=== PATIENT | male | born 1955 | race Caucasian/White ===

== ENCOUNTER 2018-01-18 15:40 | Observation (INO) | payer MEDICAID, SELFPAY ==
[2018-01-18] VITALS (79 sets, daily range): BP systolic 116–141; BP diastolic 50–84; PULSE 42–61; RESP 7–22; TEMP 36.5–37.6; O2SAT 90–100
--- NOTE | 2018-01-18 16:02 | W.ED.GENAD ---
Discharge Plan Discharge Details Chief Complaint: Dizzy/Sync ED Provider: Aj Denson Home Meds and New Rx's Prescriptions: No Action simvastatin 20 mg Tablet 20 mg PO QPM RF: 0 hydrochlorothiazide 25 mg Tablet 25 mg PO DAILY RF: 0 lisinopril 10 mg Tablet See Label Instructions .ROUTE .COMPLEX RF: 0 Medical Decision Making This is a pleasant 62-year-old male who is a very poor historian, who presents today for evaluation of near syncope and dizziness that occurred when he turned his head suddenly to the side while driving. He has associated tinnitus. His symptoms are made worse when he stands up or moves around. Physical exam demonstrates a diaphoretic appearing male, with no associated chest pain. Notably dizzy and lightheaded. EKG shows evidence of bradycardia, but no other significant abnormalities. He states that in the past his heart rate has been slow. We will rehydrate the patient, give meclizine and Zofran as I am concerned for potential peripheral vertigo as a cause of his symptoms however with his associated headache I do think it is reasonable to get a CT scan of the head and neck to evaluate for any acute bleed or pathology although I feel this less likely. With his normal neurologic exam I am otherwise reassured. 5:[address] angios the head and neck shows no acute process. CT of the head demonstrates generalized prominence of the pituitary gland with slight elevation of the sella diaphragm. Radiology recommends further MRI evaluation. While here and resting the patient demonstrated notable episodes of sinus bradycardia. Initial EKG shows evidence of sinus bradycardia however here in the monitor he would dip down into the high 30s. We would go in and wake the patient up and he would come back to the high 40s to mid 50s. On reassessment the patient's dizziness has notably improved. He continues to demonstrate no acute neurologic process or definite neurologic deficit. The patient's laboratory workup is returned and demonstrates no significant acute laboratory abnormalities. Creatinine is slightly elevated at 1.36, however troponin, electrolytes are otherwise normal. I did contact the system development manager Dr. Power and discussed the case with him. He feels that with a sinus rhythm the patient's symptoms are unlikely to require pacing. He recommends monitoring, with an outpatient echocardiogram and Holter monitor. He feels that the patient's transient bradycardia is likely to resolve during the night most likely being initially secondary to his vasovagal episodes with his associated vertigo. Clinically the patient does show signs and symptoms consistent with peripheral vertigo, which is response and improvement with meclizine and Zofran, his sudden onset of symptoms with turning his head to the left, and his associated tinnitus. We did get the patient up and ambulate him, and he shows no sign of an ataxic gait, however he still does feel slightly dizzy. He is notably improved from his prior clinical picture though. We will contact the hospitalist for admission/observation. 6:20 PM I did contact the hospitalist and discussed the case with Dr. Sandy, he agrees with the assessment and plan. The patient will be admitted to the floor for telemetry. I have extensively reviewed the treatment plan with the patient. I have addressed all patient concerns at this time. I have also discussed the plan with the admitting physician and they agree with the current assessment and plan and have agreed to assume responsibility for the patient. All parties demonstrate verbal understanding and agreement with our assessment and plan at this time. EKG 15: 49 Rate 55, [place] 198, QTc 444, QRS 102, sinus bradycardia no ST elevations or depressions, T wave inversion noted in V1. No Q waves. No other abnormalities IMPRESSION: 1. Generalized prominence of the pituitary gland, slightly elevating the sellar diaphragm diaphragm. Recommend further evaluation with MRI brain with and without contrast using pituitary protocol. 2. No other acute intracranial pathology. IMPRESSION: No occlusion or hemodynamically significant stenosis in the arteries of the neck. IMPRESSION: No intracranial arterial occlusion or hemodynamically significant stenosis. HPI General Date/Time Provider Initiated Documentation: 01/18/18 15:46. HPI Narrative: This is a 62-year-old male with a past medical history of diabetes, cholesterol, previous episodes of syncope in the past, and vertigo who presents today for evaluation of dizziness and syncope. The patient states that he was driving his car, when he turned his head to the left suddenly to look in his mirror at which point he became very dizzy and felt like he needed to pass out. Pulled over, and felt extremely lightheaded. When he came to he had a mild headache, and notable severe dizziness with room spinning sensation. He also had associated ringing in his ears. Symptoms were made worse with movement of his head or body. Improved by nothing. He did have associated diaphoresis during this episode. He denies any chest pain or shortness of breath. He denies any numbness, tingling, weakness double vision. He does admit to notable nausea but no vomiting or diarrhea. He does have a history of vertigo in the past which she states that this feels very similar to. Patient denies any other complaints at this time. He does admit to a past surgical history on his left eye for removal of a small mass, which has led to an equal pupil. He denies any other new surgery or problems. He denies any cardiac history or history of stroke. The patient denies any headache red flags of worst headache of life, thunderclap headache, neck pain, fever, chills, concerning family history of polycystic kidney disease, Marfan syndrome, Shelly-Danlos syndrome, abdominal aortic aneurysm, aortic dissection, or intracranial aneurysm. He has no other complaints at this time. Related Data Home Medications Medication Instructions Recorded Confirmed hydrochlorothiazide 25 mg PO DAILY 01/18/18 01/18/18 lisinopril See Label Instructions .ROUTE 01/18/18 01/18/18 .COMPLEX simvastatin 20 mg PO QPM 01/18/18 01/18/18 Allergies Allergy/AdvReac Type Severity Reaction Status Date / Time No Known Allergies Allergy Unverified 01/18/18 16:10 General Stated Complaint: Dizzy/Sync LESLEE: 2 Review of Systems Review of Systems All systems reviewed & are unremarkable except as noted in HPI and below PFSH Social History Smoking/Tobacco Use Status: Former Tobacco Use Social History Smoking/Tobacco Use Status: Former Tobacco Use Exam Narrative Exam Narrative: 1.Const: Well-nourished, Well-developed, appearing stated age, diaphoretic 2.Eyes: PERRL, no conjunctival injection, and symmetrical lids. 3.ENT: Atraumatic external nose and ears. Moist MM. Neck: Symmetric, trachea midline, No thyromegaly. Old surgical scar in his left eye, with some associated anisocoria, pupils otherwise reactive. 4.CVS: +S1/S2, No murmurs or gallops. Peripheral pulses 2+ and equal in all extremities. Brisk capillary refill in all extremities. 5.RESP: Unlabored respiratory effort. Clear to auscultation bilaterally. No wheezes rales or rhonchi 6.GI: Soft, Nontender/Nondistended, No hepatosplenomegaly. No guarding or rebound. 7.MSK: Normocephalic/Atraumatic, Extremities w/o deformity or ttp No cyanosis or clubbing, Normal movement of all extremities 8.Skin: Warm, Dry. No rashes or lesions. 9.Neuro: site worker II-XII grossly intact. Sensation grossly intact, no focal neurologic deficits. All 6 cardinal planes of vision are fully intact. No evidence of rotatory or vertical nystagmus. The patient demonstrated a normal vhftuw-wrca-bgwdhf, good dexterity. There was no evidence of dysdiadochokinesia. Patient was able to ambulate without difficulty. There was no wide-based gait. Romberg, and crla-bw-jhdo are both normal on testing. Sensation was intact bilaterally as well as muscle strength bilaterally for all extremities. Patient was able to verbalize butter cup with no slurring, or miss pronunciation. Cerebellar function testing is normal. The patient demonstrates a normal hints exam with no findings concerning for a central event. No vertical nystagmus. The head impulse test is negative for any significant central abnormality. Normal test of skew. No suggestion of a central cerebellar event. CN 2-12 tested and intact, patient is able to hold bilateral arms up for 5 seconds and there is no pronator drift, patient also holds legs up for 10 seconds bilaterally without any drop, sensation intact to light touch in hands and feet bilaterally. Cerebellar exam normal as tested by [id number], [id number], rapid alternating movements, fine finger movements. Visual dumont intact peripherally. Normal speech pattern and verbal understanding. 10.Psych: (AAO) x3. Appropriate mood and affect Course Vital Signs Pulse 57 L 01/18/18 15:43 Respiratory Rate 16 01/18/18 15:43 Blood Pressure 135/50 L 01/18/18 15:43 Pulse Oximetry 94 L 01/18/18 15:43 Pulse 57 L 01/18/18 15:43 Respiratory Rate 16 01/18/18 15:43 Blood Pressure 135/50 L 01/18/18 15:43 Blood Pressure Position Sitting 01/18/18 15:43 Pulse Oximetry 94 L 01/18/18 15:43
--- NOTE | 2018-01-18 16:08 | ED.GENADUL_ITS ---
Discharge Plan Discharge Details Chief Complaint: Dizzy/Sync ED Provider: Aj Denson Home Meds and New Rx's Prescriptions: No Action simvastatin 20 mg Tablet 20 mg PO QPM RF: 0 hydrochlorothiazide 25 mg Tablet 25 mg PO DAILY RF: 0 lisinopril 10 mg Tablet See Label Instructions .ROUTE .COMPLEX RF: 0 Medical Decision Making This is a pleasant 62-year-old male who is a very poor historian, who presents today for evaluation of near syncope and dizziness that occurred when he turned his head suddenly to the side while driving. He has associated tinnitus. His symptoms are made worse when he stands up or moves around. Physical exam demonstrates a diaphoretic appearing male, with no associated chest pain. Notably dizzy and lightheaded. EKG shows evidence of bradycardia, but no other significant abnormalities. He states that in the past his heart rate has been slow. We will rehydrate the patient, give meclizine and Zofran as I am concerned for potential peripheral vertigo as a cause of his symptoms however with his associated headache I do think it is reasonable to get a CT scan of the head and neck to evaluate for any acute bleed or pathology although I feel this less likely. With his normal neurologic exam I am otherwise reassured. 5:[address] angios the head and neck shows no acute process. CT of the head demonstrates generalized prominence of the pituitary gland with slight elevation of the sella diaphragm. Radiology recommends further MRI evaluation. While here and resting the patient demonstrated notable episodes of sinus bradycardia. Initial EKG shows evidence of sinus bradycardia however here in the monitor he would dip down into the high 30s. We would go in and wake the patient up and he would come back to the high 40s to mid 50s. On reassessment the patient's dizziness has notably improved. He continues to demonstrate no acute neurologic process or definite neurologic deficit. The patient's laboratory workup is returned and demonstrates no significant acute laboratory abnormalities. Creatinine is slightly elevated at 1.36, however troponin, electrolytes are otherwise normal. I did contact the office technician Dr. Power and discussed the case with him. He feels that with a sinus rhythm the patient' s symptoms are unlikely to require pacing. He recommends monitoring, with an outpatient echocardiogram and Holter monitor. He feels that the patient's transient bradycardia is likely to resolve during the night most likely being initially secondary to his vasovagal episodes with his associated vertigo. Clinically the patient does show signs and symptoms consistent with peripheral vertigo, which is response and improvement with meclizine and Zofran, his sudden onset of symptoms with turning his head to the left, and his associated tinnitus. We did get the patient up and ambulate him, and he shows no sign of an ataxic gait, however he still does feel slightly dizzy. He is notably improved from his prior clinical picture though. We will contact the hospitalist for admission/observation. 6:20 PM I did contact the hospitalist and discussed the case with Dr. Sandy, he agrees with the assessment and plan. The patient will be admitted to the floor for telemetry. I have extensively reviewed the treatment plan with the patient. I have addressed all patient concerns at this time. I have also discussed the plan with the admitting physician and they agree with the current assessment and plan and have agreed to assume responsibility for the patient. All parties demonstrate verbal understanding and agreement with our assessment and plan at this time. EKG 15: 49 Rate 55, [place] 198, QTc 444, QRS 102, sinus bradycardia no ST elevations or depressions, T wave inversion noted in V1. No Q waves. No other abnormalities IMPRESSION: 1. Generalized prominence of the pituitary gland, slightly elevating the sellar diaphragm diaphragm. Recommend further evaluation with MRI brain with and without contrast using pituitary protocol. 2. No other acute intracranial pathology. IMPRESSION: No occlusion or hemodynamically significant stenosis in the arteries of the neck. IMPRESSION: No intracranial arterial occlusion or hemodynamically significant stenosis. HPI General Date/Time Provider Initiated Documentation: 01/18/18 15:46 . HPI Narrative: This is a 62-year-old male with a past medical history of diabetes, cholesterol, previous episodes of syncope in the past, and vertigo who presents today for evaluation of dizziness and syncope. The patient states that he was driving his car, when he turned his head to the left suddenly to look in his mirror at which point he became very dizzy and felt like he needed to pass out. Pulled over, and felt extremely lightheaded. When he came to he had a mild headache, and notable severe dizziness with room spinning sensation. He also had associated ringing in his ears. Symptoms were made worse with movement of his head or body. Improved by nothing. He did have associated diaphoresis during this episode. He denies any chest pain or shortness of breath. He denies any numbness, tingling, weakness double vision. He does admit to notable nausea but no vomiting or diarrhea. He does have a history of vertigo in the past which she states that this feels very similar to. Patient denies any other complaints at this time. He does admit to a past surgical history on his left eye for removal of a small mass, which has led to an equal pupil. He denies any other new surgery or problems. He denies any cardiac history or history of stroke. The patient denies any headache red flags of worst headache of life, thunderclap headache, neck pain, fever, chills, concerning family history of polycystic kidney disease, Marfan syndrome, Shelly- Danlos syndrome, abdominal aortic aneurysm, aortic dissection, or intracranial aneurysm. He has no other complaints at this time. Related Data Home Medications Medication Instructions Recorded Confirmed hydrochlorothiazide 25 mg PO DAILY 01/18/18 01/18/18 lisinopril See Label Instructions .ROUTE 01/18/18 01/18/18 .COMPLEX simvastatin 20 mg PO QPM 01/18/18 01/18/18 Allergies Allergy/AdvReac Type Severity Reaction Status Date / Time No Known Allergies Allergy Unverified 01/18/18 16:10 General Stated Complaint: Dizzy/Sync LESLEE: 2 Review of Systems Review of Systems All systems reviewed & are unremarkable except as noted in HPI and below PFSH Social History Smoking/Tobacco Use Status: Former Tobacco Use Social History Smoking/Tobacco Use Status: Former Tobacco Use Exam Narrative Exam Narrative: 1.Const: Well-nourished, Well-developed, appearing stated age, diaphoretic 2.Eyes: PERRL, no conjunctival injection, and symmetrical lids. 3.ENT: Atraumatic external nose and ears. Moist MM. Neck: Symmetric, trachea midline, No thyromegaly. Old surgical scar in his left eye, with some associated anisocoria, pupils otherwise reactive. 4.CVS: +S1/S2, No murmurs or gallops. Peripheral pulses 2+ and equal in all extremities. Brisk capillary refill in all extremities. 5.RESP: Unlabored respiratory effort. Clear to auscultation bilaterally. No wheezes rales or rhonchi 6.GI: Soft, Nontender/Nondistended, No hepatosplenomegaly. No guarding or rebound. 7.MSK: Normocephalic/Atraumatic, Extremities w/o deformity or ttp No cyanosis or clubbing, Normal movement of all extremities 8.Skin: Warm, Dry. No rashes or lesions. 9.Neuro: product specialist II-XII grossly intact. Sensation grossly intact, no focal neurologic deficits. All 6 cardinal planes of vision are fully intact. No evidence of rotatory or vertical nystagmus. The patient demonstrated a normal odepgj-dyub-uygkgl, good dexterity. There was no evidence of dysdiadochokinesia. Patient was able to ambulate without difficulty. There was no wide-based gait. Romberg, and pnuf-qn-dush are both normal on testing. Sensation was intact bilaterally as well as muscle strength bilaterally for all extremities. Patient was able to verbalize butter cup with no slurring, or miss pronunciation. Cerebellar function testing is normal. The patient demonstrates a normal hints exam with no findings concerning for a central event. No vertical nystagmus. The head impulse test is negative for any significant central abnormality. Normal test of skew. No suggestion of a central cerebellar event. CN 2-12 tested and intact, patient is able to hold bilateral arms up for 5 seconds and there is no pronator drift, patient also holds legs up for 10 seconds bilaterally without any drop, sensation intact to light touch in hands and feet bilaterally. Cerebellar exam normal as tested by [id number], feut-ozpp-npsz, rapid alternating movements, fine finger movements. Visual dumont intact peripherally. Normal speech pattern and verbal understanding. 10.Psych: (AAO) x3. Appropriate mood and affect Course Vital Signs Pulse 57 L 01/18/18 15:43 Respiratory Rate 16 01/18/18 15:43 Blood Pressure 135/50 L 01/18/18 15:43 Pulse Oximetry 94 L 01/18/18 15:43 Pulse 57 L 01/18/18 15:43 Respiratory Rate 16 01/18/18 15:43 Blood Pressure 135/50 L 01/18/18 15:43 Blood Pressure Position Sitting 01/18/18 15:43 Pulse Oximetry 94 L 01/18/18 15:43
[2018-01-18 16:11] LABS: Abs Immature Grans 0.06 k/cumm (0.0-0.09); Absolute Basophil Count 0.05 k/cumm (0.0-0.2); Absolute Lymphocyte Count 3.77 k/cumm (1.2-3.4); Absolute Monocyte Count 1.06 k/cumm (0.11-0.7); Absolute Neutrophil Count 5.28 k/cumm (1.2-6.7); Basophils % 0.5; HCT 45.2 % (40.0-50.0); HGB 15.6 g/dL (13.5-17.5); Immature Grans % 0.6; Lymphocytes % 36.5; Mean Corp. HGB Concentration 34.5 g/dL (32.0-36.0); Mean Corpuscular Hemoglobin 29.6 pg (27.0-33.0); Mean Corpuscular Volume 85.8 fL (80-95); Mean Platelet Volume 10.3 fL (8.0-11.0); Monocytes % 10.3; Neutrophils % 51.1; Platelet Count 309 x1000/uL (130-400); RBC 5.27 m/cumm (4.50-6.00); RBC Distribution Width 13.4 % (11.8-14.1); White Blood Cell Count 10.32 k/cumm (4.4-10.8)
[2018-01-18] MEDS: Meclizine 25 MG TAB PO (16:11)
[2018-01-18] MEDS: Ondansetron O.D.T. 4 MG TABEF PO (16:11)
[2018-01-18] MEDS: Ondansetron 4 MG/2 ML VIAL (16:11)
[2018-01-18] MEDS: Normal Saline 1,000 ML 1000 ML IV (16:11)
[2018-01-18 16:18] LABS: Magnesium 1.9 mg/dL (1.8-2.4)
[2018-01-18 16:28] LABS: ALT 42 U/L (12-78); AST 26 U/L (15-37); Albumin 4.2 g/dL (3.4-5.0); Alkaline Phosphatase 51 U/L (46-116); Anion Gap 11.8 mmol/L (3-11); BUN 19 mg/dL (7-18); Bilirubin, Total 0.5 mg/dL (0.2-1.0); CO2 25.2 mmol/L (21.0-32.0); CREATININE 1.36 mg/dL (0.70-1.30); Calcium 9.3 mg/dL (8.5-10.1); Chloride 101 mmol/L (98-107); Glucose 143 mg/dL (70-100); Potassium 3.4 mmol/L (3.5-5.1); Sodium 138 mmol/L (136-145); Total Protein 7.6 g/dL (6.4-8.2)
[2018-01-18 16:37] LABS: Troponin I < 0.02 ng/mL (0.00-0.06)
--- NOTE | 2018-01-18 17:05 | DI.CT_ITS ---
SYMPTOMS/DIAGNOSIS: SUDDEN ONSET DIZZINESS, VOMITING, HEADACHE CT SCAN OF THE BRAIN: Noncontrast examination. No priors for comparison. The ventricles and sulci are consistent with the patient's age. There is a normal kirkland-white matter differentiation. The ventricles are intact. The basilar cisterns are patent. No intracranial hemorrhage, infarct, midline shift or mass effect is identified. There is prominence of the pituitary gland extending superiorly with some loss of the suprasellar space. There is a mucus retention cyst or polyp in the right maxillary sinus. The remaining visualized paranasal sinuses are clear. The mastoid air cells are well pneumatized. The calvarium is intact. IMPRESSION: 1. No acute intracranial process. 2. Prominence of the pituitary gland. Further evaluation with an MRI of the brain without and with contrast using the pituitary protocol is recommended. CTA OF THE HEAD AND NECK: CT angiography was performed with multi slice acquisition and multi planar and 3D reconstruction. Routine examination was performed. CTA OF THE HEAD: The distal internal carotid arteries show no occlusion or aneurysm. No significant stenosis is seen. The anterior cerebral arteries show no evidence of occlusion or aneurysm. No significant stenosis is present. The middle cerebral arteries show no evidence of occlusion or aneurysm. No significant stenosis is seen. The posterior cerebral arteries show no evidence of occlusion or aneurysm. No significant stenosis is seen. Note is made of origin of the left posterior cerebral artery. The distal vertebral arteries and basilar artery are unremarkable without evidence of aneurysm, occlusion or significant stenosis. IMPRESSION: No evidence of hemodynamically significant stenosis or occlusion. CTA OF THE NECK: The common carotid arteries show mild atherosclerosis, but no hemodynamically significant stenosis is seen. No evidence of dissection or occlusion is present. The internal carotid arteries show mild atherosclerosis proximally, but no significant stenosis is seen. No occlusion or dissection is present. The external carotid arteries are unremarkable without evidence of occlusion or significant stenosis. The vertebral arteries are unremarkable. No evidence of occlusion or dissection. No significant stenosis is present. The basilar artery is unremarkable without evidence of occlusion or aneurysm. No significant stenosis is present. Degenerative changes are seen in the spine. IMPRESSION: No evidence of hemodynamically significant stenosis in the arteries of the neck.
[2018-01-18] MEDS: Omnipaque 350 MG/ML 100 ML BTL IJ (17:16)
--- NOTE | 2018-01-18 17:35 | DI.VRAD_ITS ---
EXAM: CT Head Without Intravenous Contrast EXAM DATE/TIME: 01/18/2018 3:49 PM CLINICAL HISTORY: 62 years old, male; Signs and symptoms; Dizziness; Patient HX: Sudden onset dizziness, vomiting, headache. TECHNIQUE: Axial computed tomography images of the head/brain without intravenous contrast. Coronal and sagittal reformatted images were created and reviewed. COMPARISON: No relevant prior studies available. FINDINGS: Brain: No intracranial hemorrhage or extra-axial fluid collection. No evidence of mass effect or midline shift. Caban-white matter differentiation is normal. Generalized prominence of the pituitary gland, slightly elevating the sellar diaphragm diaphragm. Ventricles: Prominence of the ventricles and sulci, most likely attributed to parenchymal volume loss. Bones/joints: No acute osseus lesion or fracture. Sinuses: Small right maxillary sinus retention cyst. Mastoid air cells: Unremarkable. Soft tissues: Unremarkable. IMPRESSION: 1. Generalized prominence of the pituitary gland, slightly elevating the sellar diaphragm diaphragm. Recommend further evaluation with MRI brain with and without contrast using pituitary protocol. 2. No other acute intracranial pathology. Dictated and Authenticated by: Efren Dimas MD. Ordering:CECELIA MALHOTRA MD
--- NOTE | 2018-01-18 17:39 | DI.VRAD_ITS ---
EXAM: CT Angiography Head With Intravenous Contrast EXAM DATE/TIME: 01/18/2018 3:49 PM CLINICAL HISTORY: 62 years old, male; Signs and symptoms; Dizziness and giddiness and headache; Patient HX: Sudden onset of dizziness, vomiting and headache TECHNIQUE: Axial computed tomographic angiography images of the head with intravenous contrast using CT angiography protocol. All CT scans at this facility use at least one of these dose optimization techniques: automated exposure control; mA and/or kV adjustment per patient size (includes targeted exams where dose is matched to clinical indication); or iterative reconstruction. MIP reconstructed images were created and reviewed. COMPARISON: CT HEAD WO 01/18/2018 4:58 PM FINDINGS: Right internal carotid artery: Intracranial segment is patent with no evidence of hemodynamically significant stenosis. No aneurysm. Right anterior cerebral artery: No occlusion or significant stenosis. No aneurysm. Right middle cerebral artery: No occlusion or significant stenosis. No aneurysm. Right posterior cerebral artery: No occlusion or significant stenosis. No aneurysm. Right vertebral artery: No occlusion or significant stenosis. No aneurysm. Left internal carotid artery: Intracranial segment is patent with no evidence of hemodynamically significant stenosis. No aneurysm. Left anterior cerebral artery: No occlusion or significant stenosis. No aneurysm. Left middle cerebral artery: No occlusion or significant stenosis. No aneurysm. Left posterior cerebral artery: Patent and type left posterior cerebral artery. Left vertebral artery: No occlusion or significant stenosis. No aneurysm. Basilar artery: No occlusion or significant stenosis. No aneurysm. IMPRESSION: No intracranial arterial occlusion or hemodynamically significant stenosis. EXAM: CT Angiography Neck With Intravenous Contrast EXAM DATE/TIME: 01/18/2018 3:49 PM CLINICAL HISTORY: 62 years old, male; Signs and symptoms; Dizziness and giddiness and headache; Patient HX: Sudden onset of dizziness, vomiting and headache TECHNIQUE: Axial computed tomographic angiography images of the neck with intravenous contrast using CT angiography protocol. All CT scans at this facility use at least one of these dose optimization techniques: automated exposure control; mA and/or kV adjustment per patient size (includes targeted exams where dose is matched to clinical indication); or iterative reconstruction. MIP reconstructed images were created and reviewed. COMPARISON: CT HEAD WO 01/18/2018 4:58 PM FINDINGS: VASCULATURE: Right common carotid artery: No significant stenosis. No dissection or occlusion. Right internal carotid artery: Atherosclerotic plaques involving the proximal extracranial right internal carotid artery without evidence of hemodynamically significant stenosis (0% stenosis by NASCET criteria). Right external carotid artery: No occlusion or significant stenosis. Right vertebral artery: No significant stenosis. No dissection or occlusion. Left common carotid artery: No significant stenosis. No dissection or occlusion. Left internal carotid artery: Atherosclerotic plaques involving the proximal extracranial left internal carotid artery without evidence of hemodynamically significant stenosis (0% stenosis by NASCET criteria). Left external carotid artery: No occlusion or significant stenosis. Left vertebral artery: No significant stenosis. No dissection or occlusion. NECK: Bones/joints: No acute fracture. Soft tissues: Unremarkable. IMPRESSION: No occlusion or hemodynamically significant stenosis in the arteries of the neck. COMMENT: Reference per NASCET criteria for degree of stenosis: Mild: <50% stenosis. Moderate: 50-69% stenosis. Severe: 70-94% stenosis. Near occlusion: 95-99% stenosis. Dictated and Authenticated by: Efren Dimas MD. Ordering:CECELIA MALHOTRA MD
[2018-01-18] MEDS: Normal Saline Flush 10 ML SYR IVP (18:22)
--- NOTE | 2018-01-18 18:58 | W.PM.HP.N ---
Date of service: 01/18/18 Time of Service: 18:58 Assessment and Plan (1) Vertigo: Current visit: Yes Status: Acute Vertigo. Usual differential of peripheral versus central. Absence of complementary neurological symptoms as well as the reported positional features would favor labyrinthitis though I would remain concerned about possible TIA or small stroke. Certainly patient has a number of risk factors for vascular disease any rate for now I would just treat with as needed meclizine but I think there would be some wisdom in starting the patient on aspirin prophylaxis. The sinus bradycardia appears to be an entirely incidental finding and in fact asymptomatic so I am not sure that anything is required here. Still, we will keep the patient on telemetry for now. As to the slight prominence of the pituitary I would likewise regard this is incidental. An MRI has been recommended for further evaluation. This could be done while the patient is here or as an outpatient. History of Present Illness Chief Complaint: vertigo Narrative: Patient is a 62-year-old male with history of hypertension. 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 He also became nauseous and diaphoretic he believes these symptoms tended to be worse with movement of his head. He eventually came to the emergency room. In the emergency room initial evaluation of note for negative head CT and CTA of head and neck he was given a dose of meclizine with good effect. However, he was noted to be bradycardic, sinus bradycardia, while he was dozing. These episodes were entirely asymptomatic on questioning patient states that he has been told in the past that he has a low pulse but has no precise details. The patient was admitted for further evaluation and management. He reports no ear pain or discharge and no change in his hearing. He does have a degree of intermittent tinnitus but this is long-standing there has been no recent upper respiratory infection. During these spells he had no trouble with vision, speech or moving his extremities Past medical history: Hypertension, diabetes, hyperlipidemia Allergies no known Medications HCTZ 25 daily, lisinopril unknown dose, Zocor 20 at bedtime Physical exam: Blood pressure 130/75 pulse in the low 50s (high 40s lowest recorded in chart), respirations 14, temperature not recorded. 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 Extraocular movements are intact. Exam of the ears shows normal TMs and the [place]-Hallpike maneuver is negative bilaterally neck is supple without carotid bruits. Lungs clear. Heart is bradycardic and regular, no murmurs rubs or gallops abdomen is soft and nontender. and rectal exams are deferred. Extremities trace pedal edema neurological exam patient is alert and oriented cranial nerves intact motor exam is 5/5 throughout. I do not get the patient up to walk but it is reported that he walked well before. Laboratory White count is 10.3, hematocrit 45 platelet 309 sodium 138 potassium 3.4 chloride 101 bicarb 25 BUN 19 creatinine 1.3 glucose 143 head and neck CTA shows no significant stenosis head CT is unremarkable with the exception of slight prominence of the pituitary is noted. Review of Systems Review of Systems All systems reviewed & are unremarkable except as noted in HPI and below PFSH Social History Smoking/Tobacco Use Status: Former Tobacco Use Social History Smoking/Tobacco Use Status: Former Tobacco Use Meds Home Medications Medication Instructions Recorded Confirmed Type hydrochlorothiazide 25 mg PO DAILY 01/18/18 01/18/18 History lisinopril See Label Instructions .ROUTE 01/18/18 01/18/18 History .COMPLEX simvastatin 20 mg PO QPM 01/18/18 01/18/18 History Allergies Allergy/AdvReac Type Severity Reaction Status Date / Time No Known Allergies Allergy Unverified 01/18/18 16:10 Exam Narrative Exam Narrative: see HPI Results Labs : 01/18/18 15:47 01/18/18 15:47 Laboratory Results - last 24 hr 01/18/18 01/18/18 01/18/18 15:47 15:47 15:49 WBC 10.32 RBC 5.27 Hgb 15.6 Hct 45.2 MCV 85.8 MCH 29.6 MCHC 34.5 RDW 13.4 Plt Count 309 MPV 10.3 Immature Gran % 0.6 Neutrophils % 51.1 Lymphocytes % 36.5 Monocytes % 10.3 Eosinophils % 1.0 Basophils % 0.5 Absolute Neutrophils 5.28 Absolute Lymphocytes 3.77 H Absolute Monocytes 1.06 H Absolute Eosinophils 0.10 Absolute Basophils 0.05 Sodium 138 Potassium 3.4 L Chloride 101 Carbon Dioxide 25.2 Anion Gap 11.8 H BUN 19 H Creatinine 1.36 H Estimated GFR/1.73 m2 53.10 Glucose 143 H Calcium 9.3 Magnesium 1.9 Total Bilirubin 0.5 AST 26 ALT 42 Alkaline Phosphatase 51 Troponin I < 0.02 Total Protein 7.6 Albumin 4.2 Last Vital Signs Pulse 47 L 01/18/18 18:08 Resp 14 01/18/18 18:10 BP 130/75 01/18/18 18:08 Pulse Ox 100 01/18/18 18:10
[2018-01-18] MEDS: Simvastatin 20 MG TAB PO (20:02)
[2018-01-18] MEDS: Potassium Chloride 10 MEQ TABCR PO (20:02)
[2018-01-18] MEDS: Acetaminophen 325 MG TAB 650 MG PO (20:03)
[2018-01-18] MEDS: Aspirin 325 MG TAB PO (20:20)
--- NOTE | 2018-01-19 06:13 | PDOC.CMIN ---
- If Service Date Differs Date of service: 01/19/18 Time of Service: 06:13 Care Management Initial Assess REASON FOR HOSPITALIZATION:: Vertigo PAST MEDICAL HISTORY/PAST SURGICAL HISTORY:: Per ER Assessment: Depression, Lipoma of breast, Dyslipidemia, Hypertension PREVIOUS FUNCTIONAL STATUS/SOCIAL/FAMILY SUPPORTS:: Kraig resides alone in [place]. He states that he has two children, one in [place] and on in [place] which he does not have much of a relationship with. 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 Kraig is independent at baseline, drives, and manages ADL's. CURRENT FUNCTIONAL STATUS:: Kraig is lying in bed watching TV when this program writer visits. He states that he is hopeful to return home today. ADVANCE DIRECTIVES:: None on file Has patient been provided with information about the portal?: Yes Did the patient sign up for the portal?: No CODE STATUS:: Full Code INSURANCE COVERAGE / FINANCIAL ISSUES:: Self Pay - Kraig states that he has been uninsured since May which he has just recently been made aware of. As he will be laid off in the winter, he has decided to reapply for Medicaid in February. Kraig has the contact information for patient assistance at [facility] which he will contact on Sunday. CURRENT HOME/COMMUNITY SERVICES/EQUIPMENT:: Currently Kraig has no services or medical equipment in the community. PRIMARY CARE PHYSICIAN:: Ramona Bullock POTENTIAL DISCHARGE NEEDS:: F/U appointment with PCP PATIENT/FAMILY EDUCATION NEEDS:: Review DC instructions, any limitations, and ongoing DC planning discussion. Discuss 'Ask Me Three' ANTICIPATED BARRIERS TO DISCHARGE:: None identified at this time. TRANSPORTATION:: Via private vehicle with his [id number] PLAN:: Kraig will return home with no anticipated services once medically cleared. He will F/U with PCP and plan of care as prescribed. Kraig's [id number] to transport when ready.
--- NOTE | 2018-01-19 06:17 | INITIAL_ITS ---
- If Service Date Differs Date of service: 01/19/18 Time of Service: 06:13 Care Management Initial Assess REASON FOR HOSPITALIZATION:: Vertigo PAST MEDICAL HISTORY/PAST SURGICAL HISTORY:: Per ER Assessment: Depression, Lipoma of breast, Dyslipidemia, Hypertension PREVIOUS FUNCTIONAL STATUS/SOCIAL/FAMILY SUPPORTS:: Kraig resides alone in [place]. He states that he has two children, one in [place] and on in [place] which he does not have much of a relationship with. 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 Kraig is independent at baseline, drives, and manages ADL's. CURRENT FUNCTIONAL STATUS:: Kraig is lying in bed watching TV when this insurance underwriter visits. He states that he is hopeful to return home today. ADVANCE DIRECTIVES:: None on file Has patient been provided with information about the portal?: Yes Did the patient sign up for the portal?: No CODE STATUS:: Full Code INSURANCE COVERAGE / FINANCIAL ISSUES:: Self Pay - Kraig states that he has been uninsured since May which he has just recently been made aware of. As he will be laid off in the winter, he has decided to reapply for Medicaid in February. Kraig has the contact information for patient assistance at [facility] which he will contact on Sunday. CURRENT HOME/COMMUNITY SERVICES/EQUIPMENT:: Currently Kraig has no services or medical equipment in the community. PRIMARY CARE PHYSICIAN:: Ramona Bullock POTENTIAL DISCHARGE NEEDS:: F/U appointment with PCP PATIENT/FAMILY EDUCATION NEEDS:: Review DC instructions, any limitations, and ongoing DC planning discussion. Discuss 'Ask Me Three' ANTICIPATED BARRIERS TO DISCHARGE:: None identified at this time. TRANSPORTATION:: Via private vehicle with his [id number] PLAN:: Kraig will return home with no anticipated services once medically cleared. He will F/U with PCP and plan of care as prescribed. Kraig's Sister-in- law to transport when ready.
[2018-01-19 07:00] VITALS: PULSE 52
[2018-01-19 09:13] VITALS: BP 147/82; PULSE 62; RESP 18; TEMP 36.8; O2SAT 97
[2018-01-19] MEDS: Hydrochlorothiazide 25 MG TAB PO (09:16)
[2018-01-19] MEDS: Lisinopril 10 MG TAB PO (09:16)
[2018-01-19] MEDS: Potassium Chloride 10 MEQ TABCR PO (09:17)
--- NOTE | 2018-01-19 09:42 | PT.INVERTIGO ---
Date of service: 01/19/18 Time of Service: 09:42 PT Notes Date: January 19, 2018 Referring Doctor: Dr. Janiya Grewal PT Orders: PT Consult for Vertigo Precautions: Fall Risk Patient Profile/Admitting Diagnosis: Pt is a 62 admitted for male diagnosed with vertigo. PMHX: HTN, DB, hyperlipidemia, previous episodes of syncope and vertigo Social History/Home Situation: Lives alone in a two level home. Primarily lives on first floor. 3-4 steps into home with bilateral railings. 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 Equipment owned/DME: Grab bars in home in shower and by toilet. SUBJECTIVE: I had to gizzard puller because I felt light headed and almost fainted. I got really dizzy when I turned my head to the left. I pulled over at [employer], which is where I was going anyways to weigh the load in my truck. Got out of the truck and lost my balance and fell. [place] like I was being pushed to the left. My friend came to pick me up to bring me to the hospital and I was nauseous the entire drive and even vomitted. Symptoms: Onset of symptoms: See subjective. Patient was admitted to [facility] 01/18/18. Trauma: X No Exacerbating Factors: Patient admits he fatigues easily and becomes light headed when bending forward (such as when tying his shoes). Relieving Factors: Sit still Types of Dizziness: None at today's evaluation. Patient reports significant improvement over yesterday. No vertigo or light headedness complaints throughout eval. Headaches: X Yes - Described as 'pressure' in the occipital area when bed at 0 degrees (fully supine) along with 'congestion' feeling. Balance Deficits: X No Hearing Loss: NO Tinnitis: X Yes On occasion with right ear worse than left. Functional Limitations: None at time of eval. OBJECTIVE: General Observation: Bilateral IV ports placed in anticubital fossas. No medication being administered. Patient was lying in bed with HOB 35 degrees. Mental Status: A &O x3 Pain: none to speak of. 0/10 Vital Signs: [] (BP- check for orthostatic hypotension) BP supine: 134/74 BP sittin/76 BP standing 136/85 HR: 48 beats per minute Oxygen: 96% O2 saturation at room air ROM: Bilateral UE and LE WFL and painfree. ROM Cervical Spine : WNL and non symptom producing for vertigo. C-rotation groosly 75 degrees bilaterally with no reproduction of vertigo. Vertebral Artery Screening: Negative Sustained End Range of Motion: (+ or ? for dizziness) X No ROM RUE: WNL L UE: WNL R LE: WNL LLE: WNL STRENGTH: R UE: 4+/5 throughout L UE: 4+/5 throughout R LE: 4+/5 throughout LLE: 4+/5 throughout SENSATION: Intact to light touch bilateral UE and LEs NEUROLOGICAL: Proprioception: Finger to Nose: WNL Limb Direction WNL Fine Motor: Digital Finger: WNL Rhomberg: negative OCCULOMOTOR Visual Tracking: WNL Head Shaking (+ or ? for nystagmus) [] Positive X No Vestibular Ocular Reflex (VOR): negative VESTIBULAR TESTING Rapid Head Nods (+) (-) Yes [] X No [] X Halpike Testing (BBPV): Negative for both positions BED MOBILITY/TRANSFERS: Supine-sit: Independent Sit-supine: Independent Sit-Stand: Independent Stand-sit: Independent Bed-Chair: Independent Chair-bed:Independent GAIT: Ambulated 150 with supervision and no assistive device. No complaints of dizziness with functional transfers, bed mobility or ambulation. He resumed semi reclined position in bed with HOB 40 degrees following ambulation. BALANCE: Static sitting: good Dynamic Sitting: good except when flexing forward to reach to toes, feels slight light headedness Static Standing: good Dynamic Standing: good Mobility Limitations Standardized Measure: [facility] AM -PAC ?6 clicks? Basic Mobility Inpatient Short Form: [] raw score: standardized score: 61.14% CMS score: 0% CMS modifier: CH INFORMED CONSENT/EDUCATION: Pt instructed in purpose of PT Consult and plan of care . ASSESSMENT: Patient is a 62 year old male referred to physical therapy services with diagnosis of vertigo. Patient does not present with clinical signs and symptoms consistent with BPPV as his Edward testing was negative. Patient does not require formal PT at the present time. Results were verbally discussed with referring MD and RN. Impairments are contributing to the following functional limitations: AMPAC score 0% Patient is assessed as a Low 51572 complexity based on the following: History: See PMH Examination: unremarkable Presentation: stable and uncomplicated Decision Making: Based on AMPAC score of 0% DISCHARGE RECOMMENDATIONS: D/C to home when medically cleared. TREATMENT TIME/MINUTES/CODES: 9:45-10:15 30 minutes IE G-codes in the area of mobility, walking and moving around, current status GP [id number], projected status GP [id number] discharge status (if discharging) GP [id number] based on AMPAC score. Thank you for this referral. Please do not hesitate to contact me with any questions or concerns regarding this patient's POC. Yung Tellez PT, DPT
--- NOTE | 2018-01-19 09:45 | IN_ITS ---
Date of service: 01/19/18 Time of Service: 09:42 PT Notes Date: January 19, 2018 Referring Doctor: Dr. Janiya Grewal PT Orders: PT Consult for Vertigo Precautions: Fall Risk Patient Profile/Admitting Diagnosis: Pt is a 62 admitted for male diagnosed with vertigo. PMHX: HTN, DB, hyperlipidemia, previous episodes of syncope and vertigo Social History/Home Situation: Lives alone in a two level home. Primarily lives on first floor. 3-4 steps into home with bilateral railings. 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 Equipment owned/DME: Grab bars in home in shower and by toilet. SUBJECTIVE: I had to tack puller machine because I felt light headed and almost fainted. I got really dizzy when I turned my head to the left. I pulled over at [employer], which is where I was going anyways to weigh the load in my truck. Got out of the truck and lost my balance and fell. [place] like I was being pushed to the left. My friend came to pick me up to bring me to the hospital and I was nauseous the entire drive and even vomitted. Symptoms: Onset of symptoms: See subjective. Patient was admitted to [facility] 01/18/18. Trauma: X No Exacerbating Factors: Patient admits he fatigues easily and becomes light headed when bending forward (such as when tying his shoes). Relieving Factors: Sit still Types of Dizziness: None at today's evaluation. Patient reports significant improvement over yesterday. No vertigo or light headedness complaints throughout eval. Headaches: X Yes - Described as 'pressure' in the occipital area when bed at 0 degrees (fully supine) along with 'congestion' feeling. Balance Deficits: X No Hearing Loss: NO Tinnitis: X Yes On occasion with right ear worse than left. Functional Limitations: None at time of eval. OBJECTIVE: General Observation: Bilateral IV ports placed in anticubital fossas. No medication being administered. Patient was lying in bed with HOB 35 degrees. Mental Status: A &O x3 Pain: none to speak of. 0/10 Vital Signs: [] (BP- check for orthostatic hypotension) BP supine: 134/74 BP sittin/76 BP standing 136/85 HR: 48 beats per minute Oxygen: 96% O2 saturation at room air ROM: Bilateral UE and LE WFL and painfree. ROM Cervical Spine : WNL and non symptom producing for vertigo. C-rotation groosly 75 degrees bilaterally with no reproduction of vertigo. Vertebral Artery Screening: Negative Sustained End Range of Motion: (+ or ? for dizziness) X No ROM RUE: WNL L UE: WNL R LE: WNL LLE: WNL STRENGTH: R UE: 4+/5 throughout L UE: 4+/5 throughout R LE: 4+/5 throughout LLE: 4+/5 throughout SENSATION: Intact to light touch bilateral UE and LEs NEUROLOGICAL: Proprioception: Finger to Nose: WNL Limb Direction WNL Fine Motor: Digital Finger: WNL Rhomberg: negative OCCULOMOTOR Visual Tracking: WNL Head Shaking (+ or ? for nystagmus) [] Positive X No Vestibular Ocular Reflex (VOR): negative VESTIBULAR TESTING Rapid Head Nods 3 (+) (-) Yes [] X No [] X Halpike Testing (BBPV): Negative for both positions BED MOBILITY/TRANSFERS: Supine-sit: Independent Sit-supine: Independent Sit-Stand: Independent Stand-sit: Independent Bed-Chair: Independent Chair-bed:Independent GAIT: Ambulated 150 with supervision and no assistive device. No complaints of dizziness with functional transfers, bed mobility or ambulation. He resumed semi reclined position in bed with HOB 40 degrees following ambulation. BALANCE: Static sitting: good Dynamic Sitting: good except when flexing forward to reach to toes, feels slight light headedness Static Standing: good Dynamic Standing: good Mobility Limitations Standardized Measure: [facility] AM -PAC ?6 clicks? Basic Mobility Inpatient Short Form: [] raw score: standardized score: 61.14% CMS score: 0% CMS modifier: CH INFORMED CONSENT/EDUCATION: Pt instructed in purpose of PT Consult and plan of care . ASSESSMENT: Patient is a 62 year old male referred to physical therapy services with diagnosis of vertigo. Patient does not present with clinical signs and symptoms consistent with BPPV as his Edward testing was negative. Patient does not require formal PT at the present time. Results were verbally discussed with referring MD and RN. Impairments are contributing to the following functional limitations: AMPAC score 0% Patient is assessed as a Low [id number] complexity based on the following: History: See PMH Examination: unremarkable Presentation: stable and uncomplicated Decision Making: Based on AMPAC score of 0% DISCHARGE RECOMMENDATIONS: D/C to home when medically cleared. TREATMENT TIME/MINUTES/CODES: 9:45-10:15 30 minutes IE G-codes in the area of mobility, walking and moving around, current status GP [id number], projected status GP [id number] discharge status (if discharging) GP [id number] based on AMPAC score. Thank you for this referral. Please do not hesitate to contact me with any questions or concerns regarding this patient's POC. Yung Tellez PT, DPT
[2018-01-19] MEDS: Potassium Chloride 20 MEQ TABCR 40 MEQ PO (10:45)
[2018-01-19 11:47] VITALS: BP 134/85; PULSE 54; RESP 18; TEMP 36.7; O2SAT 96
--- NOTE | 2018-01-19 14:23 | DSE_ITS ---
Date of service: 01/19/18 Time of Service: 14:15 DS: Diagnosis Discharge Diagnosis (1) Vertigo: Status: Acute (2) Hypertension: Status: Chronic (3) Bradycardia: Status: Acute (4) Pituitary mass: Status: Acute (5) Obesity (BMI 30-39.9): Status: Acute Discharge Plan Disposition Patient Disposition: AGAINST MEDICAL ADVICE Condition: Stable Discharge Details Reason For Visit: BRADYCARDIA Admit Date/Time: 01/18/18 18:13 Admit Provider: Julio Sandy Attending Provider: Julio Sandy Primary Care Provider: Ramona Bullock Hospital Course Hospital Course: Mr Oakes is a 62 year old male who had presented to [facility] on 01/18/18 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 While initial suspicion was for vertigo, the patient's Edward test was negative. He was recommended to stay here for additional dizziness workup, which would have included further telemetry monitoring, echocardiogram, MRI of the brain ( including of his pituitary which was enlarged on CT), as well as ultrasound of his carotid. The patient refused to stay in the hospital until Sunday to get the tests done, stating he can't afford the hospital bill and does not have medical insurance. He verbalizes understanding that leaving the hospital today, he is leaving AMA. He had met with case management, who provided him with resources to help with hospital bills as well as getting insurance. The patient also states he does not have a PCP. Our case managemen will be helping him with getting into care on the outpatient basis. I am concerned that the patient was bradycardic throughout his stay here, sometimes down to 30's during sleep and down to low 50's while awake. The patient does admit to snoring loudly and would strongly benefit from a sleep study as outpatient, in addition to above workup. He was counselled not to drive his truck until cleared by his PCP and verbalized understanding. Home Meds and New Rx's Prescriptions: Continue simvastatin 20 mg Tablet 20 mg PO QPM RF: 0 hydrochlorothiazide 25 mg Tablet 25 mg PO DAILY RF: 0 lisinopril 10 mg Tablet See Label Instructions .ROUTE .COMPLEX RF: 0 Discharge Instructions Instructions: Vertigo (DC), Pituitary Adenoma (DC), Bradycardia (DC), Dizziness (GEN) Additional Instructions: Follow up with PCP for further testing. Return to the hospital if you dizziness recurs, if you have any chest pain, shortness of breath, or bleeding. Referrals: Ramona Bullock DO [Primary Care Provider] - Activity:: May not drive a car/truck Equipment/Supplies:: No Equipment Needed Diet:: Low Sodium Discharge Orders Discharge Orders: Discharge Order (Routine); Ordered 01/19/18 Ordered By: Janiya Grewal Discharge Data Discharge Date/Time-TO BE ENTERED AT DEPARTURE: 01/19/18 14:18 Exam Narrative Exam Narrative: General: obese male, quite talkative, laying comfortably in bed at a 30 degree angle, sounds like he has nasal congestion HEENT: no nystagmus. EOMI, MMM Heart: RRR, bradycardic, no murmurs Lungs: CTAB Abdomen: obese, soft, nontender Extremities: no edema, clubbing, or cyanosis of BLE's. DS: Data Vitals/I&O Vitals and I&O: Vital Signs Temperature 36.7 C 01/19/18 11:47 Temperature Source Tympanic 01/19/18 11:47 Pulse 54 L 01/19/18 11:47 Pulse Rhythm Regular 01/19/18 08:44 Pulse 52 L 01/18/18 18:10 Respiratory Rate 18 01/19/18 11:47 Respiratory Effort Non-Labored 01/19/18 08:44 Respiratory Depth Normal 01/19/18 08:44 Respiratory Pattern Normal 01/19/18 08:44 Blood Pressure 134/85 01/19/18 11:47 Blood Pressure Mean 89 01/18/18 18:08 Blood Pressure Position Sitting 01/18/18 15:43 Pulse Oximetry 96 01/19/18 11:47 Oxygen Delivery Method Room Air 01/19/18 11:47 Oxygen Flow Rate 0 01/19/18 11:47 Pain Level 5 01/19/18 11:47 Intake & Output 01/18/18 01/19/18 01/19/18 23:59 11:59 23:59 Intake Total 1000 / 1000 900 / 900 Balance 1000 / 1000 900 / 900 Weight 127.6 kg Intake: IV 1000 / 1000 Oral 900 / 900 Other: Comment pt headed into br to void at end of noc shift Completed studies during hospitalization [Text1]: CT/CTA head/neck: 1. Generalized prominence of the pituitary gland, slightly elevating the sellar diaphragm diaphragm. Recommend further evaluation with MRI brain with and without contrast using pituitary protocol. 2. No other acute intracranial pathology. No intracranial arterial occlusion or hemodynamically significant stenosis. No occlusion or hemodynamically significant stenosis in the arteries of the neck. Labs on day of discharge: Labs from last 24 hours 01/18/18 01/18/18 01/18/18 15:49 15:47 15:47 WBC 10.32 RBC 5.27 Hgb 15.6 Hct 45.2 MCV 85.8 MCH 29.6 MCHC 34.5 RDW 13.4 Plt Count 309 MPV 10.3 Immature Gran % 0.6 Neutrophils % 51.1 Lymphocytes % 36.5 Monocytes % 10.3 Eosinophils % 1.0 Basophils % 0.5 Absolute Neutrophils 5.28 Absolute Lymphocytes 3.77 H Absolute Monocytes 1.06 H Absolute Eosinophils 0.10 Absolute Basophils 0.05 Sodium 138 Potassium 3.4 L Chloride 101 Carbon Dioxide 25.2 Anion Gap 11.8 H BUN 19 H Creatinine 1.36 H Estimated GFR/1.73 m2 53.10 Glucose 143 H Calcium 9.3 Magnesium 1.9 Total Bilirubin 0.5 AST 26 ALT 42 Alkaline Phosphatase 51 Troponin I < 0.02 Total Protein 7.6 Albumin 4.2 PFSH Social History Smoking/Tobacco Use Status: Former Tobacco Use Social History Smoking/Tobacco Use Status: Former Tobacco Use
[2018-01-19 14:25] VITALS: PULSE 61
== END 2018-01-19 14:18 | disposition left against medical advice (07) ==
LOC: ER 18:45 → MS 01-19 08:19
PROVIDERS: Admitting Provider General Practice; Emergency Provider Student in an Organized Health Care Education/Training Program; PCP Student in an Organized Health Care Education/Training Program; Visit Provider Internal Medicine
DX: R42 Dizziness and giddiness (principal); Z53.21 Procedure and treatment not carried out due to patient leaving prior to being seen by health care provider; I10 Essential (primary) hypertension; D44.3 Neoplasm of uncertain behavior of pituitary gland; R00.1 Bradycardia, unspecified; E66.9 Obesity, unspecified; Z68.39 Body mass index [BMI] 39.0-39.9, adult; E11.9 Type 2 diabetes mellitus without complications; E78.5 Hyperlipidemia, unspecified
CPT/HCPCS: 36415; 70496; 70498; 80053; 93005; 96361; 96374; 97161; 99217; 99222; 99285; 70450; 83735; 84484; 85025; 93010; 99219; G0378; J2405; J3490